=== PATIENT | female | born 1985 | race Hispanic/Latino ===

== ENCOUNTER 2018-08-11 22:39 | Emergency (ER) | payer BC ==
[2018-08-11 23:03] VITALS: BMI 30.9
[2018-08-11 23:18] VITALS: RESP 18; TEMP 97.9; O2SAT 100
--- NOTE | 2018-08-11 23:35 | ED PDOC ---
Arrival/HPI - General Chief Complaint: Allergic Reaction Time Seen by Provider: 08/11/18 23:34 Historian: Patient - History of Present Illness Narrative History of Present Illness (Text): 08/11/18 23:34 32 year old female, whose past medical history includes anxiety and depression, presents to the emergency department accompanied by mother for complaints of an allergic reaction s/p dying her hair. Patient states yesterday she dyed her hair with permanent dye and began developing an itchy scalp. Patient also reports she woke up today with redness and pain to her scalp. She reports similar symptoms in the past after dying her hair. Patient denies any fever, chills, sore throat, chest pain, shortness of breath, nausea, vomiting, diarrhea, back pain, neck pain, headache, dizziness, or any other complaints. PMD: Dr. Price Time/Duration: 24 hours Symptom Onset: Gradual Symptom Course: Unchanged Activities at Onset: Light Context: Home Past Medical History - Provider Review Nursing Documentation Reviewed: Yes - Cardiac Hx Cardiac Disorders: No Hx Hypertension: No - Pulmonary Hx Tuberculosis: No - Neurological HX Cerebrovascular Accident: No Hx Seizures: No - Hematological/Oncological Hx Cancer: No - Integumentary Other/Comment: Hx psoriasis - Musculoskeletal/Rheumatological Hx Falls: No Hx Rheumatoid Arthritis: Yes - Gastrointestinal Hx Gastrointestinal Disorders: No - Genitourinary/Gynecological Hx Genitourinary Disorders: No Hx Reproductive Disorders: No - Psychiatric Hx Anxiety: Yes Hx Bipolar Disorder: Yes Hx Depression: Yes Hx Substance Use: No - Anesthesia Hx Anesthesia: No Hx Anesthesia Reactions: No Hx Malignant Hyperthermia: No - Suicidal Assessment Feels Threatened In Home Enviroment: No Family/Social History - Physician Review Nursing Documentation Reviewed: Yes Family/Social History: No Known Family HX Smoking Status: Former Smoker Hx Alcohol Use: Yes Hx Substance Use: No Hx Substance Use Treatment: No Allergies/Home Meds Allergies/Adverse Reactions: Allergies bioxin Allergy (Uncoded 08/11/18 23:07) RASH Review of Systems - Physician Review All systems were reviewed & negative as marked: Yes - Review of Systems Constitutional: absent: Fevers, Other (Chills) ENT: absent: Sore Throat Respiratory: absent: SOB Cardiovascular: absent: Chest Pain Gastrointestinal: absent: Diarrhea, Nausea, Vomiting Genitourinary Female: absent: Dysuria, Frequency, Hematuria Musculoskeletal: absent: Back Pain, Neck Pain Skin: Other (Itchiness, redness, and pain to her scalp) Neurological: absent: Headache, Dizziness Physical Exam - Physical Exam Narrative Physical Exam (Text): Gen: VS reviewed, alert, well developed, well nourished, nontoxic, mild distress. ENT: normal pharynx. Eye: EOMI, PERRL. Neck: no JVD, supple, no adenopathy. CV: regular rate, regular rhythm, no rubs, no murmur, no gallops, S1, S2, pulses equal and strong. Pulm: no distress, clear to auscultation, no wheeze, no rhonchi, breath sounds equal, no rales. Abd: soft, nontender, no guarding, no rebound, no rigidity, normal bowel sounds. Ext: no edema. Skin: Red irritated rash to her entire scalp. good color, no cyanosis. Psych: responds appropriately to questions, normal affect. Neuro: oriented x 3, CN2-12 intact grossly, motor intact, sensation intact. Vital Signs Reviewed: Yes Vital Signs Temp Pulse Resp BP Pulse Ox 08/11/18 23:18 97.9 F 67 18 142/101 H 100 Temperature: Afebrile Blood Pressure: Hypertensive Pulse: Regular Respiratory Rate: Normal Medical Decision Making ED Course and Treatment: 08/11/18 23:34 Impression: 32 year old female presents complaining of itchy, redness, and pain to her scalp s/p dying her hair with permanent dye yesterday. Plan: -- Prednisone Tab -- POC Urine Test -- Reassess and disposition Progress Notes: 08/11/18 23:57 patient seen for scalp contact dermatitis after getting her hair dyed. patient has experienced a similar scalp allergic reaction in the past with hair dye. at this time the patient allergic reaction symptoms are limited to the scalp. there is no involvement beyond the scalp, there is no airway compromise. patient is clinically stable for dc. - Scribe Statement The provider has reviewed the documentation as recorded by the David Rodríguez Provider Scribe Attestation: All medical record entries made by the Shanaeiblinda were at my direction and personally dictated by me. I have reviewed the chart and agree that the record accurately reflects my personal performance of the history, physical exam, medical decision making, and the department course for this patient. I have also personally directed, reviewed, and agree with the discharge instructions and disposition. Disposition/Present on Arrival - Present on Arrival Any Indicators Present on Arrival: No History of DVT/PE: No History of Uncontrolled Diabetes: No Urinary Catheter: No History of Decub. Ulcer: No History Surgical Site Infection Following: None - Disposition Have Diagnosis and Disposition been Completed?: Yes Diagnosis: Contact dermatitis due to cosmetics Disposition: HOME/ ROUTINE Disposition Time: 23:58 Patient Plan: Discharge Condition: STABLE Discharge Instructions (ExitCare): Contact Dermatitis (DC) Additional Instructions: Return for any new or worsening symptoms. Follow up with your primary care doctor to recheck your elevated blood pressure. You may take an antihistamine as needed for itching. FABIO AYALA, thank you for letting us take care of you today. Your provider was Dr. Ludin Stephens and you were treated for allergic reaction to hair dye. The emergency medical care you received today was directed at your acute symptoms. If you were prescribed any medication, please fill it and take as directed. It may take several days for your symptoms to resolve. Return to the Emergency Department if your symptoms worsen, do not improve, or if you have any other problems. Please contact your doctor or call one of the physicians/clinics you have been referred to that are listed on the Patient Visit Information form that is included in your discharge packet. Bring any paperwork you were given at discharge with you along with any medications you are taking to your follow up visit. Our treatment cannot replace ongoing medical care by a primary care provider outside of the emergency department. Thank you for allowing the [facility] team to be part of your care today. If you had an X-Ray or CT scan: A Radiologist will review the ED reading if any change in treatment is needed we will contact you. If you had a blood, urine, or wound culture: It will take several days for the results, if any change in treatment is needed we will contact you. If you had an STI test: It will take 48 hours for the results. Please call after 1 week if you have not heard back. Prescriptions: Prednisone [Deltasone] 20 mg PO DAILY 8 Days #15 tablet Forms: [employer] (Eritrean), WORK NOTE
[2018-08-12 01:14] VITALS: BP 127/82; PULSE 65
== END 2018-08-12 00:40 | disposition home or self-care (01) ==
LOC: ED 22:39
DX: L25.0 Unspecified contact dermatitis due to cosmetics (principal)

== ENCOUNTER 2018-08-15 18:29 | Emergency (ER) | payer BC ==
[2018-08-15 18:30] VITALS: BMI 30.9
--- NOTE | 2018-08-15 19:54 | ED PDOC ---
Arrival/HPI - General Chief Complaint: Anxiety Time Seen by Provider: 08/15/18 19:24 - History of Present Illness Narrative History of Present Illness (Text): 32 yr old female w/ hx of MDD, OCD, Rheumatoid Arthritis, recent allergic reaction on steroid taper p/w anxiety. 1 hour [employer]UDIT LE[employer] pt noted she was feeling stressed over work and her sisters wedding. She noted taking a shower and then having thoughts that "she wanted to get out, to elope from work, but to also stay in for work." She notes that she is extremely stressed in regards to start exams: specifically the PSAT she will have to [place]. She notes feeling overwhelmed. No steroid taper usage today. She took her normal dose of vybands. No chest pain or shortness of breath. No fall or SENIOR. No fever, chills or night sweats. No neck stiffness. No GI or complaints. No SI or HI. Pt notes feeling less anxious after taking her 5mg of xanax. She denies any OD. 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 Past Medical History - Provider Review Nursing Documentation Reviewed: Yes - Travel History Have you recently traveled outside [place] w/in the past 3 mons?: No - Cardiac Hx Cardiac Disorders: No Hx Hypertension: No - Pulmonary Hx Tuberculosis: No - Neurological HX Cerebrovascular Accident: No Hx Seizures: No - Hematological/Oncological Hx Cancer: No - Integumentary Other/Comment: Hx psoriasis - Musculoskeletal/Rheumatological Hx Falls: No Hx Rheumatoid Arthritis: Yes - Gastrointestinal Hx Gastrointestinal Disorders: No - Genitourinary/Gynecological Hx Genitourinary Disorders: No Hx Reproductive Disorders: No - Psychiatric Hx Anxiety: Yes Hx Bipolar Disorder: Yes Hx Depression: Yes Hx Substance Use: No - Anesthesia Hx Anesthesia: No Hx Anesthesia Reactions: No Hx Malignant Hyperthermia: No - Suicidal Assessment Feels Threatened In Home Enviroment: No Family/Social History Family/Social History: Unknown Family HX Smoking Status: Former Smoker Hx Alcohol Use: Yes Hx Substance Use: No Hx Substance Use Treatment: No Allergies/Home Meds Allergies/Adverse Reactions: Allergies bioxin Allergy (Uncoded 08/11/18 23:07) RASH Review of Systems - Review of Systems Constitutional: absent: Fatigue, Weight Change Eyes: absent: Vision Changes, Photophobia, Eye Pain ENT: absent: Hearing Changes, Tinnitus, Rhinorrhea Respiratory: absent: SOB, Cough, Sputum Cardiovascular: absent: Chest Pain, Palpitations, Edema Gastrointestinal: absent: Abdominal Pain, Stool Changes, Nausea, Vomiting Genitourinary Female: absent: Dysuria, Frequency, Hematuria Musculoskeletal: absent: Arthralgias, Neck Pain Skin: absent: Rash, Pruritis Neurological: absent: Headache, Dizziness, Focal Weakness Endocrine: absent: Diaphoresis Hemo/Lymphatic: absent: Adenopathy Psychiatric: Anxiety. absent: Depression Physical Exam Vital Signs Reviewed: Yes Temperature: Afebrile - Systems Exam Head: Present: Atraumatic. No: Normocephalic, Tenderness, Contusion, Swelling, Ecchymosis, Abrasion, Laceration Pupils: Present: PERRL. No: Sluggish, Non-Reactive, Pinpoint Extroacular Muscles: Present: EOMI. No: Gaze Palsy, Entrapment Conjunctiva: Present: Normal. No: Injected Ears: Present: Normal, NORMAL TM Mouth: Present: Moist Mucous Membranes. No: Dry, Drooling, Trismus Pharnyx: Present: Normal. No: ERYTHEMA, EXUDATE, Peritonsilar Swelling, Uvular Deviation Nose (External): Present: Atraumatic Neck: Present: Normal Range of Motion. No: Meningeal Signs, MIDLINE TENDERNESS Respiratory/Chest: Present: Clear to Auscultation, Good Air Exchange. No: Respiratory Distress, Accessory Muscle Use Cardiovascular: Present: Regular Rate and Rhythm, Normal S1, S2, Peripheal Pulses Present. No: Murmurs Abdomen: Present: Normal Bowel Sounds. No: Tenderness, Distention, Peritoneal Signs Back: Present: Normal Inspection. No: CVA Tenderness Upper Extremity: Present: Normal Inspection. No: Cyanosis Lower Extremity: Present: Normal Inspection. No: Edema Neurological: Present: GCS=15, CN II-XII Intact, Speech Normal, Normal Sensory Function, Normal Cerebellar Funct, Norm Deep Tendon Reflexes Skin: Present: Warm Psychiatric: Present: Alert, Oriented x 3, Anxious. No: Intoxicated Medical Decision Making ED Course and Treatment: 08/15/18 19:57 32 yr old female presents w/ panic attack. No SI or HI. Pending medical clearance. Unlikely related to steroid and concominant vybands usage given pt did not take her steroid taper med today. Normal neuro exam w/ out meningeal signs. No drug use per pt. 08/15/18 22:06 Cleared by PES CBC unremarkable labs largely unremarkable EKG 65 NSr, no stemi improved on my re-eval. Neuro exam remains stables. No SI or HI or depression. Medically clear, clear for d/c home 08/15/18 22:40 Disposition/Present on Arrival - Present on Arrival Any Indicators Present on Arrival: No History of DVT/PE: No History of Uncontrolled Diabetes: No Urinary Catheter: No History Surgical Site Infection Following: None - Disposition Have Diagnosis and Disposition been Completed?: Yes Diagnosis: Panic attack Disposition: HOME/ ROUTINE Disposition Time: 22:14 Patient Plan: Discharge Patient Problems: Current Active Problems Problem Status Onset Panic attack Acute Condition: GOOD Discharge Instructions (ExitCare): Panic Disorder, Anxiety, Adult (DC) Additional Instructions: FABIO AYALA, thank you for letting us take care of you today. Your provider was Nate Cason and you were treated for ANXIETY. The emergency medical care you received today was directed at your acute symptoms. If you were prescribed any medication, please fill it and take as directed. It may take several days for your symptoms to resolve. Return to the Emergency Department if your symptoms worsen, do not improve, or if you have any other problems. Please contact your doctor or call one of the physicians/clinics you have been referred to that are listed on the Patient Visit Information form that is included in your discharge packet. Bring any paperwork you were given at discharge with you along with any medications you are taking to your follow up visit. Our treatment cannot replace ongoing medical care by a primary care provider outside of the emergency department. Thank you for allowing the [facility] team to be part of your care today. If you had an X-Ray or CT scan: A Radiologist will review the ED reading if any change in treatment is needed we will contact you. If you had a blood, urine, or wound culture: It will take several days for the results, if any change in treatment is needed we will contact you. If you had an STI test: It will take 48 hours for the results. Please call after 1 week if you have not heard back. Referrals: Clint Price MD [Primary Care Provider] - Follow up with primary [facility] [Outside] - Follow up with primary Forms: [employer] (Ecuadorean)
[2018-08-15 20:10] VITALS: RESP 18
[2018-08-15 22:01] LABS: ACETAMINOPHEN < 10.0 ug/ml (10.0-20.0); SALICYLATE < 1 mg/dL (2.0-20.0)
[2018-08-15 22:03] LABS: BLOOD UREA NITROGEN 11 mg/dL (7-21); GFR NON-AFRICAN AMERICAN > 60
[2018-08-15 22:04] LABS: ALB/GLOB RATIO 1.4 (1.1-1.8); ALT/SGPT 58 U/L (7-56); AST/SGOT 34 U/L (14-36); CALCIUM 9.4 mg/dL (8.4-10.5); PH,URINE 6.5 (4.7-8.0); URINE BILIRUBIN NEGATIVE (NEGATIVE); URINE BLOOD NEGATIVE (NEGATIVE); URINE GLUCOSE (UA) NEGATIVE (NEGATIVE); URINE LEUKOCYTE ESTERASE SMALL Leu/uL (NEGATIVE); URINE PROTEIN NEGATIVE mg/dL (<30 mg/dL); URINE UROBILINOGEN 0.2 E.U./dL (<1 E.U./dL)
[2018-08-15 22:06] LABS: URINE APPEARANCE CLEAR (CLEAR); URINE COLOR YELLOW (YELLOW)
[2018-08-15 22:09] LABS: HCG,QUALITATIVE URINE NEGATIVE (NEGATIVE); URINE BACTERIA SMALL (NEG)
[2018-08-15 22:28] LABS: BASO # 0.03 K/mm3 (0.0-2.0); BASO % 0.3 % (0.0-3.0); EOS # 0.3 (0.0-0.7); EOS % 2.7 % (1.5-5.0); GRAN # 3.97 (1.4-6.5); GRAN % 35.9 % (50.0-68.0); HEMOGLOBIN 14.3 g/dL (12.0-16.0); LYMPH # 5.8 (1.2-3.4); LYMPH % 52.1 % (22.0-35.0); MEAN CELL VOLUME 90.9 fl (80.0-105.0); MEAN CORPUSCULAR HEMOGLOBIN 30.4 pg (25.0-35.0); MEAN CORPUSCULAR HGB CONC 33.4 g/dl (31.0-37.0); MEAN PLATELET VOLUME 9.2 fl (7.0-11.0); RBC 4.71 10^6/uL (3.5-6.1); RED CELL DISTRIBUTION WIDTH 13.8 % (11.5-14.5)
[2018-08-16 01:04] LABS: BARBITURATES, UR NEGATIVE (NEGATIVE); BENZODIAZEPINES, UR POSITIVE (NEGATIVE); OPIATES, UR NEGATIVE (NEGATIVE); PHENCYCLIDINE, UR NEGATIVE (NEGATIVE)
[2018-08-16 02:20] VITALS: BP 127/84; PULSE 70; TEMP 97.9; O2SAT 99
--- NOTE | 2018-08-16 13:58 | CARD ---
APPROVED REPORT Date of service: 08/15/2018 EKG Measurement Heart [id number] DC 140P20 [id number] <Conclusion> Normal sinus rhythm Nonspecific T wave abnormality Abnormal ECG
== END 2018-08-15 22:45 | disposition home or self-care (01) ==
LOC: ED 18:29
DX: F41.0 Panic disorder [episodic paroxysmal anxiety] (principal); Z87.891 Personal history of nicotine dependence; M06.9 Rheumatoid arthritis, unspecified
CPT/HCPCS: 80053; 81001; 82550; 83735; 84703; 85025; 87086; 93005; 99284; G0480